=== PATIENT | female | born 1940 | race Caucasian/White ===

== ENCOUNTER → 2018-02-18 | Outpatient (CLI) | payer OTHER | LOC: FIMAGING 10:04 | PROVIDERS: ATTEND Orthopaedic Surgery | DX: M17.12 Unilateral primary osteoarthritis, left knee (principal) ==

== ENCOUNTER 2018-03-06 09:49 | Observation (INO) | payer OTHER ==
--- NOTE | 2018-03-06 08:09 | PDHPUP ---
History & Physical Update H&P update statement: This history and physical update is based on an assessment of the patient which was completed after admission or registration (within 24 hours), but prior to the surgery/procedure. H&P update: H&P reviewed & patient examined, no change in patient's condition since H&P completed
[~2018-03-06 09:49] MED LIST: BUPI/epINEPH/KETOROLAC IU ONE; ROPIVACAINE 0.2% 80 MG, EPINEPHrine 0.2 MG, KETOROLAC TROMETHAMINE 30 MG in SYRINGE 0 ML IU ONE; TRANEXAMIC ACID 3,000 MG in NS (SYRINGE) 50 ML IRR ONE; TRANEXAMIC ACID 3,000 MG/50 ML BAG IRR ONE
[2018-03-06] MEDS ORDERED: ceFAZolin 2 GM/SWFI 2 GM/20 ML SYR IVP ONE (10:13)
[2018-03-06] MEDS ORDERED: DEXAMETHASONE 4 MG/ML VIAL IVP ONE (10:13)
[2018-03-06] MEDS ORDERED: ACETAMINOPHEN 325 MG TAB PO ONE (10:13)
[2018-03-06] MEDS ORDERED: FAMOTIDINE 20 MG TAB PO ONE (10:13)
[2018-03-06] MEDS ORDERED: LIDOCAINE 1% 2 ML INJ ID PRN (10:14)
[2018-03-06] MEDS ORDERED: LR 1,000 ML IV ONE (10:14)
[2018-03-06] MEDS ORDERED: MIDAZOLAM 2 MG/2 ML VIAL IVP ONE (11:25)
--- NOTE | 2018-03-06 11:25 | PDANEPAE ---
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 hyperlipidemia - Pulmonary History Hx COPD: No Hx Asthma/Reactive Airway Disease: No Hx Recent Upper Respiratory Infection: No Hx Oxygen in Use at Home: No Hx Sleep Apnea: No Sleep Apnea Screening Result - Last Documented: Negative - Neurologic History Hx Cerebrovascular Accident: No Hx Seizures: No Hx Dementia: No - Endocrine History Hx Diabetes: No - Renal History Hx Renal Disorders: No - Liver History Hx Hepatic Disorders: No - Neurological & Psychiatric Hx Hx Neurological and Psychiatric Disorders: No - Cancer History Hx Cancer: No - Congenital Disorder History Hx Congenital Disorders: No - GI History Hx Gastrointestinal Disorders: No - Other Health History Other Health History: wears glasses - Chronic Pain History Chronic Pain: Yes (bilateral knee pain) - Surgical History Prior Surgeries: left knee scope 1999. hammer toe repairs in 1959's ANE Review of Systems Review of systems is: negative Review of Systems: - Exercise capacity Exercise capacity: >=4 METS METS (RN): 4 METS ANE Patient History - Allergies Allergies/Adverse Reactions: diphenhydramine HCl [From Benadryl] Allergy (Verified 03/05/18 15:43) "MAKES ME CRAZY AND ANGRY" - Home Medications Home medications: home medication list seen and reviewed Home Medications: Aspirin [Aspirin 81mg (*)] 81 mg PO HS 01/04/10 [Last Taken 02/20/18] Felodipine [Felodipine ER] 10 mg PO HS 01/04/10 [Last Taken 03/05/18] Lisinopril [Zestril 2.5 mg (*)] 2.5 mg PO DAILY 01/04/10 [Last Taken 03/05/18] Herbals/Supplements -Info Only 1 ea PO DAILY 01/29/18 [Last Taken 02/20/18] Simvastatin [Zocor] 20 mg PO HS 01/29/18 [Last Taken 03/05/18] - NPO status NPO Status: no food or drink >8 hours NPO Since - Liquids (Date): 03/06/18 NPO Since - Liquids (Time): 07:30 NPO Since - Solids (Date): 03/05/18 NPO Since - Solids (Time): 18:30 - Smoking Hx Smoking Status: Former smoker - Family Anes Hx Family Hx Anesthesia Complications: none ANE Labs/Vital Signs - Vital Signs Vital Signs: reviewed preoperatively; see RN documention for details Blood Pressure: 160/85 Heart Rate: 72 Respiratory Rate: 16 O2 Sat (%): 98 Height: 172.72 cm Weight: 59.874 kg ANE Physical Exam - Airway Neck exam: FROM Mallampati Score: Class 1 Mouth exam: normal dental/mouth exam - Pulmonary Pulmonary: no respiratory distress - Cardiovascular Cardiovascular: regular rate and rhythym - ASA Status ASA Status: II ANE Anesthesia Plan Anesthesia Plan: spinal Regional Anesthesia: adductor canal FNB
[2018-03-06] MEDS ORDERED: fentaNYL 100 MCG/2 ML INJ ONE (12:04)
[2018-03-06] MEDS ORDERED: PROPOFOL/EMULSION 500 MG/50 ML BOTTLE IV ONE (12:06)
[2018-03-06] MEDS ORDERED: VANCOMYCIN 1 GM VIAL ONE (12:29)
[2018-03-06] MEDS ORDERED: POLYETHYLENE GLYCOL 3350 17 GM PKT PO PRN (12:37)
[2018-03-06] MEDS ORDERED: CYCLOBENZAPRINE 10 MG TAB PO PRN (12:37)
[2018-03-06] MEDS ORDERED: METOCLOPRAMIDE 10 MG/2 ML VIAL IVP PRN (12:37)
[2018-03-06] MEDS ORDERED: DIPHENOXYLATE/ATROPINE LOMOTIL 1 TAB PO PRN (12:37)
[2018-03-06] MEDS ORDERED: PROMETHAZINE HCL 25 MG SUPPR PR PRN (12:37)
[2018-03-06] MEDS ORDERED: LACTULOSE 20 GM/30 ML UDCUP PO PRN (12:37)
[2018-03-06] MEDS ORDERED: PROMETHAZINE HCL 25 MG/ML INJ IVP PRN (12:37)
[2018-03-06] MEDS ORDERED: ONDANSETRON DISINTEGRATING 4 MG TAB PO PRN (12:37)
[2018-03-06] MEDS ORDERED: TEMAZEPAM 15 MG CAP PO PRN (12:37)
[2018-03-06] MEDS ORDERED: ONDANSETRON 4 MG/2 ML VIAL IVP PRN ×2 (12:37→12:52)
[2018-03-06] MEDS ORDERED: diphenhydrAMINE 25 MG CAP PO PRN (12:37)
[2018-03-06] MEDS ORDERED: BISACODYL 10 MG SUPP PR PRN (12:37)
[2018-03-06] MEDS ORDERED: MAGNESIUM HYDROXIDE 30 ML UDCUP PO PRN (12:37)
[2018-03-06] MEDS ORDERED: oxyCODONE IR 5 MG TAB PO PRN (12:37)
[2018-03-06] MEDS ORDERED: DEXAMETHASONE 4 MG/ML VIAL IVP PRN (12:52)
[2018-03-06] MEDS ORDERED: ALBUTEROL 3 ML DEYVIAL IH PRN (12:52)
[2018-03-06] MEDS ORDERED: HYDROmorphone HCL/NS 0.5 MG/ML SYR IVP PRN (12:52)
[2018-03-06] MEDS ORDERED: NALOXONE HCL 0.4 MG/ML INJ IVP PRN (12:52)
[2018-03-06] MEDS ORDERED: HYDROCODONE/APAP 5/325 TAB PO PRN (12:52)
[2018-03-06] MEDS ORDERED: fentaNYL 100 MCG/2 ML INJ IVP PRN (12:52)
[2018-03-06] MEDS ORDERED: PROPOFOL 200 MG/20 ML VIAL ONE ×2 (12:58→13:25)
[2018-03-06] MEDS ORDERED: LR 1,000 ML IV SCH (13:00)
--- NOTE | 2018-03-06 13:40 | POSTOPPROG ---
Post Op Note Date of Operation: 03/06/18 Surgeon: Rhiannon Mayen Developer Support Engineer: brian mayen Anesthesiologist: dr. matta Anesthesia: Spinal, Other (Specify) (adductor canal block) Pre-op Diagnosis: left knee OA Post-op Diagnosis: same Indication: left knee pain due to OA that failed conservative meaures Procedure: L TKA robot assisted Findings: severe knee OA Inf/Abcess present in the surg proc area at time of surgery?: No EBL: 50-100
[2018-03-06] MEDS ORDERED: ceFAZolin 2 GM/DEXTROSE 100 ML IV SCH (14:00)
[2018-03-06] MEDS: ACETAMINOPHEN 325 MG TAB PO SCH (18:31)
--- NOTE | 2018-03-06 18:38 | POSTANESTH ---
Post Anesthetic Evaluation Cardiovascular Status: Normal, Stable Respiratory Status: Normal, Stable Level of Consciousness/Mental Status: Can Participate in Eval Pain Control: Adequate, Prn Tx Ordered Nausea/Vomiting Control: Adequate, Prn Tx Ordered Complications Possibly Related to Anesthesia: None Noted
[2018-03-06] MEDS: SENNOSIDES/DOCUSATE SODIUM TAB PO SCH (20:59)
[2018-03-06] MEDS: ceFAZolin 2 GM/SWFI 2 GM/20 ML SYR IVP SCH (20:59)
[2018-03-06] MEDS ORDERED: ATORVASTATIN CALCIUM 10 MG TAB PO SCH (21:00)
[2018-03-06] MEDS ORDERED: NON-FORMULARY NEW DRUG (Simvastatin [Zocor] 20 MG) PO SCH (21:00)
[2018-03-06] MEDS ORDERED: NON-FORMULARY NEW DRUG (Felodipine [Felodipine Er] 10 MG) PO SCH (21:00)
[2018-03-06] MEDS: ASPIRIN 81 MG CHEWABLE TAB PO SCH (21:00)
[2018-03-06] MEDS: FAMOTIDINE 20 MG TAB PO SCH (21:05)
[2018-03-07] MEDS: ACETAMINOPHEN 325 MG TAB PO SCH ×2 (00:53→05:29)
[2018-03-07] MEDS: ceFAZolin 2 GM/SWFI 2 GM/20 ML SYR IVP SCH (05:29)
[2018-03-07 08:18] VITALS: BP 157/73
[2018-03-07] MEDS ORDERED: LISINOPRIL 2.5 MG TAB PO SCH (09:00)
[2018-03-07] MEDS: FAMOTIDINE 20 MG TAB PO SCH (10:58)
[2018-03-07] MEDS: ASPIRIN 81 MG CHEWABLE TAB PO SCH (10:58)
[2018-03-07] MEDS: SENNOSIDES/DOCUSATE SODIUM TAB PO SCH (11:03)
--- NOTE | 2018-03-07 21:59 | SOAPPROG ---
SOAP Progress Note Assessment/Plan: Assessment: Patient is doing well s/p L TKA pain is well controlled VTE ppx: recommend ASA BID for 4 weeks Anemia: level expected initially postop d/c planning: dc to home today Plan: 03/07/18 21:58 Subjective: patient is doing well today, denies SOB, chest pain and N/V. Objective: Vital Signs Temp Pulse Resp BP Pulse Ox 36.4 C 72 16 157/73 H 90 L 03/07/18 08:00 03/07/18 08:00 03/07/18 08:00 03/07/18 08:00 03/07/18 08:00 Laboratory Results 03/07/18 05:13 03/07/18 05:13 03/06/18 03/07/18 03/08/18 05:59 05:59 05:59 Intake Total 1420 Output Total 945 Balance 475 incision dressing is clean and dry, NVI, +pf/df ICD10 Worksheet Patient Problems: Problems Problem Status Onset Primary localized osteoarthritis of left knee Acute
--- NOTE | 2018-03-08 16:52 | GOP ---
[f rep st] OPERATIVE REPORT DATE OF OPERATION: 03/06/2018 SURGEON: Shadia Spann MD DIVERSIONAL THERAPIST'S ASSISTANT: AMY Martinez ANESTHESIA: Spinal. PREOPERATIVE DIAGNOSIS: Left knee osteoarthritis. POSTOPERATIVE DIAGNOSIS: Left knee osteoarthritis. PROCEDURE PERFORMED: Left total knee replacement with computer navigation and robotic assist. FINDINGS: ESTIMATED BLOOD LOSS: 30 cc. INDICATIONS: The patient is a 77-year-old female with severe and progressive pain and deformity of the left knee unresponsive to conservative care. The risks and benefits of surgical intervention were explained in detail. DESCRIPTION OF PROCEDURE: The patient was brought to the operative room and placed on the table in the supine position. Spinal anesthesia was induced without difficulty. A pneumatic tourniquet was applied about the left proximal thigh, and the leg was prepped and draped in a sterile fashion. The leg deng was applied. After exsanguination by elevation the tourniquet was inflated to 250 mmHg. Incision was made anterior medial from the tibial tuberosity to a point 2 cm proximal to the superior pole of the patella. Medial parapatellar arthrotomy was carried out from the superior pole of the patella and posteriorly in line with the fibers of the Type II VMO. The medial collateral ligament was elevated and the infrapatellar fat pad was resected. The patella was everted and the articular surface was excised. A 32 mm patellar button was placed. Attention was turned first to the distal aspect of the femur. After exposure of the femur, 2 half pins were placed for fixation of the femoral array. In a similar fashion, 2 pins were placed anteromedial on the tibia for fixation of the tibial array. External land marking and registration of the hip center was performed without difficulty. Internal femoral and tibial registration was carried out without difficulty and the femoral and tibial checkpoints were placed and verified for accuracy. Attention was turned to the femur. The foot print for the size 4 femoral component was cut with the saw using the [employer] robotic system and verified for accuracy against the CT based plan. In a similar fashion, the saw was used to cut the footprint for the size 4 tibial component using the [employer] system and verified for accuracy against the CT based plan. The tibial articular surface was excised without difficulty, followed by the intercondylar box cut. The knee was extended and the remnants of the medial and lateral meniscus were excised. The posterior capsule was injected with ropivacaine, epinephrine and Toradol. A size 4 tibial tray was positioned. Trial reduction was then carried out. There was excellent range of motion, alignment, and stability using the 4 x 9 mm polyethylene. All trials were then removed. The joint was thoroughly irrigated and carefully dried. The cemented components were implanted. The permanent 9 mm polyethylene was placed without difficulty. The tourniquet was deflated and all bleeders were coagulated. The wound was thoroughly irrigated and closed using interrupted sutures of 2-0 Vicryl for the joint capsule. The subcu was closed with 3-0 Vicryl and the skin with 4-0 Monocryl. Dermabond and Steri-Strips were applied followed by a compressive dressing. The patient was then moved from the operating room to the recovery room in good condition, having tolerated the procedure well. FINDINGS/PATHOLOGY: Severe tricompartmental osteoarthritis. /[id number]/MODL MTDD
== END 2018-03-07 11:46 | disposition home or self-care (01) ==
LOC: INTOOBSV 09:49 → F3N 09:49
PROVIDERS: ADMIT Orthopaedic Surgery; ATTEND Orthopaedic Surgery
DX: M17.12 Unilateral primary osteoarthritis, left knee (principal); E78.5 Hyperlipidemia, unspecified; Z87.891 Personal history of nicotine dependence
CPT/HCPCS: 27447; 73560; 88311; 97116; 97161; 97165; C1713; C1776; G8978; G8979; G8980; G8987; G8988; G8989; J0171; J0690; J1100; J1885; J2250; J2704; J3010; J3370

== ENCOUNTER → 2018-05-06 | Outpatient (CLI) | payer OTHER | LOC: FIMAGING 09:42 | PROVIDERS: ATTEND Orthopaedic Surgery | DX: M17.11 Unilateral primary osteoarthritis, right knee (principal) ==

== ENCOUNTER 2018-05-08 06:02 | Observation (INO) | payer OTHER ==
[~2018-05-08 06:02] MED LIST changes: -BUPI/epINEPH/KETOROLAC IU ONE; -TRANEXAMIC ACID 3,000 MG/50 ML BAG IRR ONE
[2018-05-08] MEDS ORDERED: ACETAMINOPHEN 325 MG TAB PO ONE (06:48)
[2018-05-08] MEDS ORDERED: ceFAZolin 2 GM/DEXTROSE 100 ML IV ONE (06:48)
[2018-05-08] MEDS ORDERED: DEXAMETHASONE 4 MG/ML VIAL IVP ONE (06:48)
[2018-05-08] MEDS ORDERED: FAMOTIDINE 20 MG TAB PO ONE (06:48)
[2018-05-08] MEDS ORDERED: LR 1,000 ML IV ONE (06:49)
[2018-05-08] MEDS ORDERED: VANCOMYCIN 1 GM VIAL ONE (07:02)
[2018-05-08] MEDS ORDERED: TRANEXAMIC ACID 3,000 MG/50 ML BAG IRR ONE (07:03)
[2018-05-08] MEDS: LIDOCAINE 1% 2 ML INJ ID PRN ×2 (07:09→07:41)
[2018-05-08] MEDS ORDERED: MIDAZOLAM 2 MG/2 ML VIAL IVP ONE (07:33)
--- NOTE | 2018-05-08 07:35 | PDANEPAE ---
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 hyperlipidemia - Pulmonary History Hx COPD: No Hx Asthma/Reactive Airway Disease: No Hx Recent Upper Respiratory Infection: No Hx Oxygen in Use at Home: No Hx Sleep Apnea: No Sleep Apnea Screening Result - Last Documented: Negative - Neurologic History Hx Cerebrovascular Accident: No Hx Seizures: No Hx Dementia: No - Endocrine History Hx Diabetes: No - Renal History Hx Renal Disorders: No - Liver History Hx Hepatic Disorders: No - Neurological & Psychiatric Hx Hx Neurological and Psychiatric Disorders: No - Cancer History Hx Cancer: No - Congenital Disorder History Hx Congenital Disorders: No - GI History Hx Gastrointestinal Disorders: No - Other Health History Other Health History: wears glasses - Chronic Pain History Chronic Pain: Yes (bilateral knee pain) - Surgical History Prior Surgeries: left knee scope 1999. hammer toe repairs in 1959's ANE Review of Systems Review of systems is: negative Review of Systems: - Exercise capacity METS (RN): 4 METS ANE Patient History - Allergies Allergies/Adverse Reactions: diphenhydramine HCl [From Benadryl] Allergy (Verified 03/05/18 15:43) "MAKES ME CRAZY AND ANGRY" - Home Medications Home medications: home medication list seen and reviewed Home Medications: Felodipine [Felodipine ER] 10 mg PO HS 01/04/10 [Last Taken 05/07/18 21:00] Lisinopril [Zestril 2.5 mg (*)] 2.5 mg PO DAILY 01/04/10 [Last Taken 05/07/18 07 :00] Herbals/Supplements -Info Only 1 ea PO DAILY 01/29/18 [Last Taken 2 Weeks Ago ~ 04/24/18] Simvastatin [Zocor] 20 mg PO HS 01/29/18 [Last Taken 05/07/18 21:00] Aspirin [Aspirin 81mg (*)] 81 mg PO HS 04/08/18 [Last Taken 2 Weeks Ago ~] Cholecalciferol Vit D3 [Vitamin D3 (*)] 1,000 units PO DAILY 04/08/18 [Last Taken 2 Weeks Ago ~04/24/18] Ibuprofen [Motrin (*)] 200 mg PO DAILY PRN 04/08/18 [Last Taken 2 Weeks Ago ~05/06] Naproxen Sodium [Aleve 220 MG (*)] 220 mg PO DAILY PRN 04/08/18 [Last Taken 2 Weeks Ago ~04/24/18] oxyCODONE IR [Oxycodone Ir (*)] 5 - 10 mg PO Q4-6PRN PRN 04/12/18 [Last Taken 21:00] Psyllium Husk (with Sugar) [Metamucil Packet] 1 each PO DAILY 05/08/18 [Last Taken 05/07/18] - NPO status NPO Status: no food or drink >8 hours NPO Since - Liquids (Date): 05/07/18 NPO Since - Liquids (Time): 20:00 NPO Since - Solids (Date): 05/07/18 NPO Since - Solids (Time): 19:00 - Smoking Hx Smoking Status: Former smoker - Family Anes Hx Family Hx Anesthesia Complications: none ANE Labs/Vital Signs - Vital Signs Blood Pressure: 137/59 Heart Rate: 68 Respiratory Rate: 16 O2 Sat (%): 96 Height: 172.72 cm Weight: 61.235 kg ANE Physical Exam - Airway Neck exam: decreased ROM Mallampati Score: Class 1 Mouth exam: normal dental/mouth exam - Pulmonary Pulmonary: no respiratory distress, no rales or rhonchi - Cardiovascular Cardiovascular: regular rate and rhythym, no murmur, rub, or gallop - ASA Status ASA Status: II ANE Anesthesia Plan Anesthesia Plan: spinal Total IV Anesthesia: Yes
[2018-05-08] MEDS ORDERED: PROPOFOL/EMULSION 500 MG/50 ML BOTTLE IV ONE (07:39)
[2018-05-08] MEDS ORDERED: fentaNYL 100 MCG/2 ML INJ ONE (07:39)
[2018-05-08] MEDS ORDERED: LIDOCAINE 2% 5 ML SDV ONE (08:36)
[2018-05-08] MEDS ORDERED: ONDANSETRON 4 MG/2 ML VIAL ONE (09:18)
[2018-05-08] MEDS ORDERED: ROPIVACAINE HCL 150 MG/30 ML INJ ONE (09:22)
[2018-05-08] MEDS ORDERED: ONDANSETRON 4 MG/2 ML VIAL IVP PRN ×2 (09:26→09:42)
[2018-05-08] MEDS ORDERED: NALOXONE HCL 0.4 MG/ML INJ IVP PRN (09:26)
[2018-05-08] MEDS ORDERED: fentaNYL 100 MCG/2 ML INJ IVP PRN (09:26)
[2018-05-08] MEDS ORDERED: ACETAMINOPHEN 500 MG TAB PO PRN (09:26)
[2018-05-08] MEDS ORDERED: oxyCODONE IR 5 MG TAB PO PRN (09:26)
[2018-05-08] MEDS ORDERED: LACTULOSE 20 GM/30 ML UDCUP PO PRN (09:42)
[2018-05-08] MEDS ORDERED: TEMAZEPAM 15 MG CAP PO PRN (09:42)
[2018-05-08] MEDS ORDERED: ONDANSETRON DISINTEGRATING 4 MG TAB PO PRN (09:42)
[2018-05-08] MEDS ORDERED: DIPHENOXYLATE/ATROPINE LOMOTIL 1 TAB PO PRN (09:42)
[2018-05-08] MEDS ORDERED: CYCLOBENZAPRINE 10 MG TAB PO PRN (09:42)
[2018-05-08] MEDS ORDERED: MAGNESIUM HYDROXIDE 30 ML UDCUP PO PRN (09:42)
[2018-05-08] MEDS ORDERED: PROMETHAZINE HCL 25 MG SUPPR PR PRN (09:42)
[2018-05-08] MEDS ORDERED: POLYETHYLENE GLYCOL 3350 17 GM PKT PO PRN (09:42)
[2018-05-08] MEDS ORDERED: diphenhydrAMINE 25 MG CAP PO PRN (09:42)
[2018-05-08] MEDS ORDERED: PROMETHAZINE HCL 25 MG/ML INJ IVP PRN (09:42)
[2018-05-08] MEDS ORDERED: BISACODYL 10 MG SUPP PR PRN (09:42)
[2018-05-08] MEDS ORDERED: METOCLOPRAMIDE 10 MG/2 ML VIAL IVP PRN (09:42)
--- NOTE | 2018-05-08 09:45 | POSTOPPROG ---
Post Op Note Date of Operation: 05/08/18 Surgeon: Rhiannon Mayen Boatbuilder Wood: brian mayen Anesthesiologist: dr. nazario Anesthesia: Spinal, Other (Specify) (addcutor canal block) Pre-op Diagnosis: right knee OA Post-op Diagnosis: same Indication: right knee pain due to OA that failed conservative measures Procedure: R TKA robot assisted, computer navigation, sensor assisted Findings: severe knee OA Inf/Abcess present in the surg proc area at time of surgery?: No EBL: 50-100
[2018-05-08] MEDS ORDERED: LR 1,000 ML IV SCH (10:00)
[2018-05-08] MEDS: ACETAMINOPHEN 325 MG TAB PO SCH ×3 (12:06→23:31)
[2018-05-08] MEDS: ceFAZolin 2 GM/DEXTROSE 100 ML IV SCH ×2 (16:03→23:30)
[2018-05-08] MEDS: SENNOSIDES/DOCUSATE SODIUM TAB PO SCH (20:52)
[2018-05-08] MEDS: ASPIRIN 81 MG CHEWABLE TAB PO SCH (20:52)
[2018-05-08] MEDS: FAMOTIDINE 20 MG TAB PO SCH (20:52)
[2018-05-08] MEDS: oxyCODONE IR 5 MG TAB PO PRN (23:31)
--- NOTE | 2018-05-09 02:51 | GOP ---
[f rep st] OPERATIVE REPORT DATE OF OPERATION: 05/08/2018 SURGEON: Shadia Spann MD CLINICAL INFORMATICS PHYSICIAN: Laurie Spann PA-C. ANESTHESIA: Spinal. PREOPERATIVE DIAGNOSIS: Right knee osteoarthritis. POSTOPERATIVE DIAGNOSIS: Right knee osteoarthritis. PROCEDURE PERFORMED: Right total knee replacement with computer navigation and robotic assistance. FINDINGS: severe lateral and PF DJD ESTIMATED BLOOD LOSS: 30 cc. INDICATIONS: The patient is a 77-year-old female with severe and progressive pain and deformity of the right knee unresponsive to conservative care. The risks and benefits of surgical intervention were explained in detail. DESCRIPTION OF PROCEDURE: The patient was brought to the operative room and placed on the table in the supine position. Spinal anesthesia was induced without difficulty. A pneumatic tourniquet was applied about the right proximal thigh, and the leg was prepped and draped in a sterile fashion. The leg deng was applied. After exsanguination by elevation the tourniquet was inflated to 250 mmHg. Incision was made anterior medial from the tibial tuberosity to a point 2 cm proximal to the superior pole of the patella. Medial parapatellar arthrotomy was carried out from the superior pole of the patella and posteriorly in line with the fibers of the Type II VMO. The medial collateral ligament was elevated and the infrapatellar fat pad was resected. The patella was everted and the articular surface was excised. A 35 mm patellar button was placed. Attention was turned first to the distal aspect of the femur. After exposure of the femur, 2 half pins were placed for fixation of the femoral array. In a similar fashion, 2 pins were placed anteromedial on the tibia for fixation of the tibial array. External land marking and registration of the hip center was performed without difficulty. Internal femoral and tibial registration was carried out without difficulty and the femoral and tibial checkpoints were placed and verified for accuracy. Attention was turned to the femur. The foot print for the size 4 femoral component was cut with the saw using the [employer] robotic system and verified for accuracy against the CT based plan. In a similar fashion, the saw was used to cut the footprint for the size 4 tibial component using the [employer] system and verified for accuracy against the CT based plan. The tibial articular surface was excised without difficulty, followed by the intercondylar box cut. The knee was extended and the remnants of the medial and lateral meniscus were excised. The posterior capsule was injected with ropivacaine, epinephrine and Toradol. A size 4 tibial tray was positioned. Trial reduction was then carried out. There was excellent range of motion, alignment, and stability using the 4 x 9 mm polyethylene. All trials were then removed. The joint was thoroughly irrigated and carefully dried. The cemented components were implanted. The permanent 9 mm polyethylene was placed without difficulty. The tourniquet was deflated and all bleeders were coagulated. The wound was thoroughly irrigated and closed using interrupted sutures of 2-0 Vicryl for the joint capsule. The subcu was closed with 3-0 Vicryl and the skin with 4-0 Monocryl. Dermabond and Steri-Strips were applied followed by a compressive dressing. The patient was then moved from the operating room to the recovery room in good condition, having tolerated the procedure well. /[id number]/MODL MTDD
[2018-05-09] MEDS: ACETAMINOPHEN 325 MG TAB PO SCH (06:07)
[2018-05-09 07:25] VITALS: BP 129/74
[2018-05-09] MEDS: oxyCODONE IR 5 MG TAB PO PRN ×2 (08:03→10:59)
[2018-05-09] MEDS: ASPIRIN 81 MG CHEWABLE TAB PO SCH (08:50)
[2018-05-09] MEDS: FAMOTIDINE 20 MG TAB PO SCH (08:51)
--- NOTE | 2018-05-09 08:55 | SOAPPROG ---
SOAP Progress Note Assessment/Plan: Assessment: Patient is doing well POD 1 s/p R TKA Pain management: pain is well controlled on oral pain meds. VTE ppx: recommend aspirin 81 mg BID for 4 weeks, cont RALPH and SCDs Anemia: level is expected initially postop. Asymptomatic. Continue to monitor D/c planning: d/c to home today pending release from PT Plan: 05/09/18 08:54 Subjective: patient is doing well, denies SOB, chest pain and N/V. Objective: Vital Signs Temp Pulse Resp BP Pulse Ox 36.9 C 65 13 129/74 H 99 05/09/18 07:24 05/09/18 07:24 05/09/18 07:24 05/09/18 08:49 05/09/18 07:24 Laboratory Results 05/09/18 04:58 05/08/18 05/09/18 05/10/18 05:59 05:59 05:59 Intake Total 3281 Output Total 1860 Balance 1421 RLE: incision dressing is clean and dry, NVI, +pf/df ICD10 Worksheet Patient Problems: Problems Problem Status Onset Primary localized osteoarthritis of right knee Acute Primary localized osteoarthritis of left knee Acute
[2018-05-09] MEDS ORDERED: LISINOPRIL 2.5 MG TAB PO SCH (09:00)
[2018-05-09] MEDS ORDERED: ATORVASTATIN CALCIUM 10 MG TAB PO SCH (09:00)
[2018-05-09] MEDS: SENNOSIDES/DOCUSATE SODIUM TAB PO SCH (10:30)
--- NOTE | 2018-05-09 16:51 | GDS ---
[f rep st] DISCHARGE SUMMARY ADMISSION DIAGNOSIS: Right knee osteoarthritis. DISCHARGE DIAGNOSIS: Right knee osteoarthritis. PROCEDURE: Right total knee arthroplasty, robotic assisted. VTE PROPHYLAXIS: Recommend aspirin 81 mg twice daily for 4 weeks. BRIEF DESCRIPTION OF HOSPITAL STAY: Patient was admitted for an elective joint arthroplasty. The pa little tolerated the procedure well and has passed physical therapy. The patient was given appropriat e antibiotic prophylaxis and venous thromboembolism prophylaxis. The patient's pain was well control led on oral pain medication, patient was holding down food, and had urinated. Decision was made to d ischarge the patient. The patient was given post-operative prescriptions pre-operatively. PLAN: Follow up as scheduled with Dr. Spann's office in 3 weeks. /[id number]/MODL
[2018-05-09] MEDS ORDERED: FELODIPINE 5 MG TAB.ER PO SCH (21:00)
== END 2018-05-09 11:13 | disposition home or self-care (01) ==
LOC: F3N 06:02
PROVIDERS: ADMIT Orthopaedic Surgery; ATTEND Orthopaedic Surgery
PROC: 0SRC0JZ Replacement of Right Knee Joint with Synthetic Substitute, Open Approach (ICD-10-PCS; principal; 2018-05-08 08:15)
DX: M17.11 Unilateral primary osteoarthritis, right knee (principal)
CPT/HCPCS: 27447; 73560; 88311; 97116; 97161; 97530; C1713; C1776; G8978; G8979; G8980; J0171; J0690; J1100; J1885; J2250; J2405; J2704; J2795; J3010; J3370